=== PATIENT | female | born 1965 | race Caucasian/White ===

== ENCOUNTER → 2021-04-26 | Emergency (ER) | payer MEDICAID, OTHER ==
[~2021-04-26] VITALS: Ht 177.8 cm; Wt 84.8 kg
--- NOTE | 2021-04-26 17:00 | NUR ---
[id number] FROM [facility] C/O ABDOMINAL PAIN P/S 09/28, "HAD PARACENTESIS AT [facility] ON 04/18/21", AAOX3, BREATHING EVEN AND NON LABORED, CONNECTED TO MONITOR
--- NOTE | 2021-04-26 17:29 | NUR ---
CALLED [facility] AND SET UP S TRANSPORT ETA 183
[2021-04-26 18:39] VITALS: BP 104/63
--- NOTE | 2021-04-26 18:39 | NUR ---
Patient discharged to home in stable condition. Written and verbal after care instructions given. Patient verbalizes understanding of instruction.
== END | disposition home or self-care (01) ==
LOC: ER 16:48
DX: R18.8 Other ascites (principal)